=== PATIENT | male | born 1980 ===

== ENCOUNTER → 2021-03-03 | Outpatient (REF) ==
--- NOTE | 2021-03-03 12:00 | REP ---
INDICATION: BACK PAIN. COMPARISON: None. TECHNIQUE: Routine FINDINGS: Normal alignment. No fracture. Marked narrowing L4-5 disc space. Facet arthropathy lower levels. Normal bone texture. IMPRESSION: Normal alignment. No fractures. Marked narrowing L4-5 disc space. Facet arthropathy lower levels. <Electronically signed by Torito Hernandez > 03/03/21 [id number]
== END ==
LOC: M PLAIMG 11:08
PROVIDERS: ATTEND Internal Medicine
DX: M54.9 Dorsalgia, unspecified (principal)